=== PATIENT | female | born 1980 | race Hispanic/Latino ===

== ENCOUNTER 2020-03-06 01:38 | Emergency (ER) | payer BC ==
[2020-03-06 02:47] LABS: Basophils # (Auto) 0.1 K/mm3 (0.0-0.1); Basophils % (Auto) 0.6 % (0.0-1.8); Eosinophils # (Auto) 0.2 K/mm3 (0.0-0.4); Eosinophils % (Auto) 1.7 % (0.0-4.3); Hematocrit 32.2 % (30.3-42.9); Hemoglobin 10.8 gm/dl (10.1-14.3); Lymphocytes # (Auto) 1.9 K/mm3 (1.2-5.4); Mean Corpuscular HGB Conc 33 % (30-34); Mean Corpuscular Volume 94 fl (79-97); Monocytes # (Auto) 1.1 K/mm3 (0.0-0.8); Monocytes % (Auto) 10.3 % (0.0-7.3); Platelet Count 201 K/mm3 (140-440); Red Blood Count 3.42 M/mm3 (3.65-5.03); Red Cell Distribution Width 13.6 % (13.2-15.2)
--- NOTE | 2020-03-06 02:53 | Emergency Department Report ---
HPI - General Chief Complaint: Altered Mental Status Time Seen by Provider: 03/06/20 02:03 - HPI HPI: 39-year-old female presents to the emergency department via EMS from [facility] with a complaint of a possible fall. Patient has been at [facility] since the beginning of February for treatment of psychosis. Patient has a sitter, an employee of [employer], who is at bedside and appears to know this patient well and says that she has been confused since she first arrived at their facility but they feel she is slightly more confused since this alleged fall. The patient apparently was seen falling by her roommate and the patient then came out with some blood coming from her nose and mouth. ED Past Medical Hx - Past Medical History Previous Medical History?: No - Medications Home Medications: Home Medications Medication Instructions Recorded Confirmed Last Taken Type Sulfamethoxazole/Trimethoprim 1 each PO BID #12 tablet 03/06/20 Unknown Rx [Bactrim DS TAB] ED Review of Systems ROS: Stated complaint: FALL/INJURY TO FACE Other details as noted in HPI Comment: Unobtainable due to pts medical conditions Physical Exam - Physical Exam Vital Signs: Vital Signs 03/06/20 01:56 Temperature 98.6 F Pulse Rate 88 Respiratory 18 Rate Blood Pressure 109/58 [Right] O2 Sat by Pulse 97 Oximetry Physical Exam: GENERAL: The patient is well-developed well-nourished. HENT: Normocephalic. Atraumatic. Patient has moist mucous membranes. There is some blood seen in the bilateral nares. No septal hematoma. EYES: Extraocular motions are intact. NECK: Supple. Trachea is midline. CHEST/LUNGS: Clear to auscultation. There is no respiratory distress noted. HEART/CARDIOVASCULAR: Regular. There is no tachycardia. There is no murmur. ABDOMEN: Abdomen is soft, nontender. Patient has normal bowel sounds. There is no abdominal distention. SKIN: Skin is warm and dry. NEURO: Patient is awake and mostly is cooperative but does appear to have some confusion and/or psychosis. The patient will follow commands but if not following commands or being stimulated she is seen responding to internal stimuli. MUSCULOSKELETAL: There is no tenderness or deformity. There is no limitation range of motion. There is no evidence of acute injury. ED Course Vital Signs 03/06/20 01:56 Temperature 98.6 F Pulse Rate 88 Respiratory 18 Rate Blood Pressure 109/58 [Right] O2 Sat by Pulse 97 Oximetry ED Medical Decision Making - Lab Data Result diagrams: 03/06/20 02:31 03/06/20 02:31 - Radiology Data Radiology results: report reviewed CT cervical spine spine without contrast INDICATION: Trauma. TECHNIQUE: Axial imaging performed through the cervical spine without the use of contrast. Sagittal and coronal reconstructed images were also reviewed. All CT scans at this location are performed using CT dose reduction for ALARA by means of automated exposure control. COMPARISON: None FINDINGS: Alignment: Spinal alignment is normal. Bones: There is no acute osseous abnormality. Mild lower cervical discogenic DJD is present. Soft tissues: No acute or significant incidental soft tissue abnormality. IMPRESSION: No acute abnormality. CT head without contrast CT maxillofacial without contrast INDICATION : MAIN: Trauma, complaint of a possible fall. Patient has been at [facility] since the beginning of February for treatment of psychosis BEST SCAN POSSIBLE . TECHNIQUE: Axial imaging performed from the skull apex through the skull base without the use of contrast. All CT scans at this location are performed using CT dose reduction for ALARA by means of automated exposure control. COMPARISON: None FINDINGS: Parenchyma: No acute intracranial hemorrhage or parenchymal abnormality. Ventricles: Ventricles are normal in size and appear symmetric. Soft tissues: Mild soft tissue swelling over the nose. Bones: Mildly depressed left nasal bone fracture. Sinuses: Complete opacification of the right maxillary sinus with mild mucoperiosteal reactive change. Similar findings are seen involving some of the ethmoid air cells. There is mild mucosal thickening in the sphenoid sinuses. IMPRESSION: 1. Mildly depressed left nasal bone fracture with mild overlying soft tissue swelling. 2. Diffuse paranasal sinus disease with chronic changes involving the right maxillary sinus. 3. No acute intracranial abnormality. - Medical Decision Making Patient was brought in from her psychiatric facility after there was a fall that was witnessed by her roommate. CT scan of the head does not show any bleed, shift, mass, ischemia, fracture, or any other acute process. CT of the cervical spine does not show any fracture, subluxation, or any acute process. CT of the facial bones shows mildly displaced left nasal bone fracture. Patient's labs have been unremarkable including CBC, metabolic panel, blood alcohol level, lithium level, ammonia. Patient will be discharged back to her psychiatric faci lity. When she is psychiatrically stabilized, the patient is to follow-up with a primary care physician and has been given a referral for facial plastics to follow-up regarding the nasal bone fracture. Critical Care Time: No Critical care attestation.: If time is entered above; I have spent that time in minutes in the direct care of this critically ill patient, excluding procedure time. ED Disposition Clinical Impression: Nasal bone fracture Qualifiers: Encounter type: initial encounter Fracture type: closed Qualified Code(s): S02.2XXA - Fracture of nasal bones, initial encounter for closed fracture Fall Qualifiers: Encounter type: initial encounter Qualified Code(s): W19.XXXA - Unspecified fall, initial encounter Disposition: TO HOME OR SELFCARE Is pt being admited?: No Condition: Stable Instructions: Nasal Fracture (ED), Minor Head Injury (ED), Fall Prevention (ED) Additional Instructions: Please follow-up with a primary care physician as soon as you are able to do so. I am giving you a referral for a local plastic surgeon, Dr. herrmann, to follow- up regarding your nasal bone fracture. Return to the emergency department with any worsening of your symptoms or any acute distress. Prescriptions: Sulfamethoxazole/Trimethoprim [Bactrim DS TAB] 1 each PO BID #12 tablet Referrals: PRIMARY CAREMD [Primary Care Provider] - 3-5 Days WORK,SKY Guillen JR, MD [Staff Physician] - as needed (Regarding nasal bone fracture) Time of Disposition: 04:10
[2020-03-06 02:59] LABS: Alanine Aminotransferase 10 units/L (7-56); Albumin 4.3 g/dL (3.9-5); BUN/Creatinine Ratio 14; Blood Urea Nitrogen 10 mg/dL (7-17); Calcium 9.5 mg/dL (8.4-10.2); Hemolysis Index 2
--- NOTE | 2020-03-06 04:02 | Cat Scan Report ---
CT head without contrast CT maxillofacial without contrast INDICATION : MAIN: Trauma, complaint of a possible fall. Patient has been at [facility] since t he beginning of February for treatment of psychosis BEST SCAN POSSIBLE . TECHNIQUE: Axial imaging performed from the skull apex through the skull base without the use of con trast. All CT scans at this location are performed using CT dose reduction for ALARA by means of aut omated exposure control. COMPARISON: None FINDINGS: Parenchyma: No acute intracranial hemorrhage or parenchymal abnormality. Ventricles: Ventricles are normal in size and appear symmetric. Soft tissues: Mild soft tissue swelling over the nose. Bones: Mildly depressed left nasal bone fracture. Sinuses: Complete opacification of the right maxillary sinus with mild mucoperiosteal reactive linares e. Similar findings are seen involving some of the ethmoid air cells. There is mild mucosal thickenin g in the sphenoid sinuses. IMPRESSION: 1. Mildly depressed left nasal bone fracture with mild overlying soft tissue swelling. 2. Diffuse paranasal sinus disease with chronic changes involving the right maxillary sinus. 3. No acute intracranial abnormality. Signer Name: Sumit Solis MD Signed: 03/06/2020 3:57 AM Workstation Name: [id number]
--- NOTE | 2020-03-06 04:02 | Cat Scan Report ---
CT head without contrast CT maxillofacial without contrast INDICATION : MAIN: Trauma, complaint of a possible fall. Patient has been at [facility] since t he beginning of February for treatment of psychosis BEST SCAN POSSIBLE . TECHNIQUE: Axial imaging performed from the skull apex through the skull base without the use of con trast. All CT scans at this location are performed using CT dose reduction for ALARA by means of aut omated exposure control. COMPARISON: None FINDINGS: Parenchyma: No acute intracranial hemorrhage or parenchymal abnormality. Ventricles: Ventricles are normal in size and appear symmetric. Soft tissues: Mild soft tissue swelling over the nose. Bones: Mildly depressed left nasal bone fracture. Sinuses: Complete opacification of the right maxillary sinus with mild mucoperiosteal reactive linares e. Similar findings are seen involving some of the ethmoid air cells. There is mild mucosal thickenin g in the sphenoid sinuses. IMPRESSION: 1. Mildly depressed left nasal bone fracture with mild overlying soft tissue swelling. 2. Diffuse paranasal sinus disease with chronic changes involving the right maxillary sinus. 3. No acute intracranial abnormality. Signer Name: Sumit Solis MD Signed: 03/06/2020 3:57 AM Workstation Name: [id number]
--- NOTE | 2020-03-06 04:03 | Cat Scan Report ---
CT cervical spine spine without contrast INDICATION: Trauma. TECHNIQUE: Axial imaging performed through the cervical spine without the use of contrast. Sagittal and coronal reconstructed images were also reviewed. All CT scans at this location are performed us ing CT dose reduction for ALARA by means of automated exposure control. COMPARISON: None FINDINGS: Alignment: Spinal alignment is normal. Bones: There is no acute osseous abnormality. Mild lower cervical discogenic DJD is present. Soft tissues: No acute or significant incidental soft tissue abnormality. IMPRESSION: No acute abnormality. Signer Name: Sumit Solis MD Signed: 03/06/2020 3:59 AM Workstation Name: [id number]
[2020-03-06 05:16] VITALS: BP 114/68
== END 2020-03-06 05:47 | disposition home or self-care (01) ==
LOC: ED 01:38
DX: S02.2XXA Fracture of nasal bones, initial encounter for closed fracture (principal); Z88.6 Allergy status to analgesic agent; Z91.018 Allergy to other foods; Z79.899 Other long term (current) drug therapy; W19.XXXA Unspecified fall, initial encounter; Y93.89 Activity, other specified; Y92.89 Other specified places as the place of occurrence of the external cause; Y99.8 Other external cause status
CPT/HCPCS: 36415; 70450; 70486; 72125; 80053; 80178; 80320; 82140; 82550; 84703; 85025; G0480